=== PATIENT | male | born 1985 | race American Indian/Alaskan Native ===

== ENCOUNTER 2020-07-18 04:50 | Emergency (ER) | payer SELFPAY ==
[2020-07-18 08:07] VITALS: BP 177/116
--- NOTE | 2020-07-18 08:18 | Emergency Department Report ---
ED General Adult HPI - General Chief complaint: Sore Throat Stated complaint: DIFF BREATHING Time Seen by Provider: 07/18/20 08:09 Source: patient Mode of arrival: Ambulatory Limitations: No Limitations - History of Present Illness Initial comments: 35-year-old -Algerian male patient presents with complaints of sore throat x2 days. He rates his pain as a 3/10 in severity and states it worsens with swallowing. He denies any difficulty swallowing/opening his jaw, fever/chills or sweats, headache, cough, shortness of breath, or rash. Patient' s blood pressure noted to be significantly elevated. He denies any history of hypertension, dizziness, vision changes, numbness/tingling/weakness in his limbs, difficulty with speech/ambulation, confusion, or memory loss. Severity scale (0 -10): 0 - Related Data Previous Rx's Medication Instructions Recorded Last Taken Type Amoxicillin/Potassium Clav 1 each PO BID 10 Days #20 tablet 07/18/20 Unknown Rx [Augmentin 875-125 Tablet] predniSONE [Deltasone] 20 mg PO BID 4 Days #8 tab 07/18/20 Unknown Rx Allergies Allergy/AdvReac Type Severity Reaction Status Date / Time No Known Allergies Allergy Unverified 07/18/20 06:31 ED Review of Systems ROS: Stated complaint: DIFF BREATHING Other details as noted in HPI Constitutional: denies: chills, diaphoresis, fever, malaise, weakness Eyes: denies: eye pain, vision change ENT: throat pain. denies: ear pain, dental pain Respiratory: denies: cough, shortness of breath Cardiovascular: denies: chest pain Musculoskeletal: denies: joint swelling Skin: denies: change in color Neurological: denies: numbness, paresthesias ED Past Medical Hx - Past Medical History Previous Medical History?: No - Surgical History Past Surgical History?: No - Social History Smoking Status: Never Smoker - Medications Home Medications: Home Medications Medication Instructions Recorded Confirmed Last Taken Type Amoxicillin/Potassium Clav 1 each PO BID 10 Days #20 tablet 07/18/20 Unknown Rx [Augmentin 875-125 Tablet] predniSONE [Deltasone] 20 mg PO BID 4 Days #8 tab 07/18/20 Unknown Rx ED Physical Exam - General Limitations: No Limitations General appearance: alert, in no apparent distress, obese - Head Head exam: Present: atraumatic, normocephalic - Eye Eye exam: Present: normal appearance. Absent: scleral icterus - Expanded ENT Exam Expanded Mouth exam: Present: tongue normal. Absent: drooling, trismus, muffled voice Throat exam: Positive: other (Moderate swelling and erythema noted of the uvula; uvula is midline). Negative: normal inspection, tonsillar erythema, tonsillomegaly, tonsillar exudate, R peritonsillar mass, L peritonsillar mass - Neck Neck exam: Present: normal inspection, full ROM. Absent: lymphadenopathy - Respiratory Respiratory exam: Present: normal lung sounds bilaterally. Absent: respiratory distress - Cardiovascular Cardiovascular Exam: Present: regular rate, normal rhythm - Extremities Exam Extremities exam: Present: full ROM - Neurological Exam Neurological exam: Present: alert, oriented X3, normal gait - Psychiatric Psychiatric exam: Present: normal affect, normal mood - Skin Skin exam: Present: warm, dry, intact, normal color. Absent: rash, cyanosis, diaphoretic, erythema, petechiae, pallor, ecchymosis ED Course Vital Signs 07/18/20 07/18/20 06:36 08:06 Temperature 98.3 F Pulse Rate 98 H Respiratory 20 Rate Blood Pressure 174/124 177/116 [Right] O2 Sat by Pulse 99 Oximetry ED Medical Decision Making - Medical Decision Making 35-year-old -Algerian male patient presents with complaints of sore throat x2 days. He rates his pain as a 3/10 in severity and states it worsens with swallowing. He denies any difficulty swallowing/opening his jaw, fever/chills or sweats, headache, cough, shortness of breath, or rash. Patient's blood pressure noted to be significantly elevated. He denies any history of hypertension, dizziness, vision changes, numbness/tingling/weakness in his limbs, difficulty with speech/ambulation, confusion, or memory loss. Uvulitis noted on exam. Will treat with Augmentin and prednisone. Recommend patient follow-up with primary care within 48 hours for recheck of his blood pressure to confirm diagnosis of hypertension. He continues to deny any neurological symptoms. He is otherwise well-appearing and stable for discharge home. Strict return precautions were discussed in detail with patient who verbalizes understanding. Critical care attestation.: If time is entered above; I have spent that time in minutes in the direct care of this critically ill patient, excluding procedure time. ED Disposition Clinical Impression: Uvulitis, Elevated blood pressure reading in office without diagnosis of hypertension Disposition: DC-01 TO HOME OR SELFCARE Is pt being admited?: No Condition: Stable Instructions: Uvulitis, Hypertension, Adult Prescriptions: Amoxicillin/Potassium Clav [Augmentin 875-125 Tablet] 1 each PO BID 10 Days #20 tablet predniSONE [Deltasone] 20 mg PO BID 4 Days #8 tab Referrals: [facility] [Provider Group] - 07/20/20 Forms: Work/School Release Form(ED)
== END 2020-07-18 08:29 | disposition home or self-care (01) ==
LOC: ED 04:50
DX: K12.2 Cellulitis and abscess of mouth (principal); R03.0 Elevated blood-pressure reading, without diagnosis of hypertension; Z79.899 Other long term (current) drug therapy
CPT/HCPCS: 99282

== ENCOUNTER 2021-09-06 02:02 | Inpatient (IN) | payer SELFPAY ==
[2021-09-06] MEDS ORDERED: ASPIRIN 325 MG TAB PO ONE (02:11)
--- NOTE | 2021-09-06 02:35 | XRay Report ---
CHEST 1 VIEW INDICATION / CLINICAL INFORMATION: chest pain, jazmine STUDY TIME: 214 COMPARISON: None available. FINDINGS: SUPPORT DEVICES: Stable HEART / MEDIASTINUM: Stable LUNGS / PLEURA: Slightly congested appearance is noted. No pleural effusions are seen. No focal infil trates are noted. No pneumothorax. ADDITIONAL FINDINGS: No significant additional findings. Signer Name: Denis Morgan MD Signed: 09/06/2021 2:30 AM Workstation Name: [id number]
[2021-09-06] MEDS ORDERED: ONDANSETRON 4 MG/2 ML INJ IV ONE (02:41)
[2021-09-06] MEDS ORDERED: MORPHINE 4 MG/1 ML INJ IV ONE (02:41)
[2021-09-06 02:44] LABS: Basophils % (Auto) 0.5 % (0.0-1.8); Eosinophils # (Auto) 0.1 K/mm3 (0.0-0.4); Eosinophils % (Auto) 1.5 % (0.0-4.3); Hematocrit 39.3 % (35.5-45.6); Hemoglobin 12.5 gm/dl (11.8-15.2); Lymphocytes # (Auto) 1.5 K/mm3 (1.2-5.4); Lymphocytes % (Auto) 18.2 % (13.4-35.0); Mean Corpuscular HGB Conc 32 % (32-34); Mean Corpuscular Volume 84 fl (84-94); Platelet Count 327 K/mm3 (140-440); Red Blood Count 4.67 M/mm3 (3.65-5.03); Red Cell Distribution Width 14.9 % (13.2-15.2)
[2021-09-06 02:54] LABS: Alanine Aminotransferase 24 units/L (7-56); Albumin 4.2 g/dL (3.9-5); BUN/Creatinine Ratio 19; Blood Urea Nitrogen 25 mg/dL (9-20); Calcium 9.2 mg/dL (8.4-10.2); Hemolysis Index 7
[2021-09-06 03:12] LABS: C-Reactive Protein 0.9 mg/dL (0.00-1.30)
[2021-09-06] MEDS ORDERED: METOPROLOL TARTRATE 5 MG/5 ML INJ IV ONE (03:18)
[2021-09-06] MEDS ORDERED: OXYMETAZOLINE 0.05% NASAL SPRAY NS ONE (04:36)
[2021-09-06] MEDS ORDERED: SODIUM CHLORIDE 0.9% IV NR (05:00)
[2021-09-06] MEDS ORDERED: TRANEXAMIC ACID IV NR (05:00)
--- NOTE | 2021-09-06 05:16 | Emergency Department Report ---
ED Chest Pain HPI - General Chief Complaint: Chest Pain Stated Complaint: GUY Time Seen by Provider: 09/06/21 02:31 Source: patient Mode of arrival: Ambulatory Limitations: No Limitations - History of Present Illness Initial Comments: pt came in said hes been having hchest pain since 8pm last night and then started to have nosebleed. -: Gradual, hour(s) Onset: during rest Pain Location: left chest Pain Radiation: none Severity scale (0 -10): 3 Quality: heaviness Consistency: intermittent Improves With: nothing Treatments Prior to Arrival: none - Related Data Previous Rx's Medication Instructions Recorded Last Taken Type Amoxicillin/Potassium Clav 1 each PO BID 10 Days #20 tablet 07/18/20 Unknown Rx [Augmentin 875-125 Tablet] predniSONE [Deltasone] 20 mg PO BID 4 Days #8 tab 07/18/20 Unknown Rx Allergies Allergy/AdvReac Type Severity Reaction Status Date / Time No Known Allergies Allergy Verified 09/06/21 02:43 Heart Score - HEART Score History: Slightly suspicious EKG: Non-specific Age: < 45 Risk factors: 1-2 risk factors Troponin: < normal limit HEART Score: 2 - EKG Read Time Time EKG Completed: 01:09 EKG Read Time: 01:09 - Critical Actions Critical Actions: 0-3 pts:0.9-1.7%risk of adverse cardiac event.Candidate for d ischarge ED Review of Systems ROS: Stated complaint: GUY Other details as noted in HPI Constitutional: denies: chills, fever Eyes: denies: eye pain, eye discharge, vision change ENT: denies: ear pain, throat pain Respiratory: denies: cough, shortness of breath, wheezing Cardiovascular: denies: chest pain, palpitations Endocrine: no symptoms reported Gastrointestinal: denies: abdominal pain, nausea, diarrhea Genitourinary: denies: urgency, dysuria Musculoskeletal: denies: back pain, joint swelling, arthralgia Skin: denies: rash, lesions Neurological: denies: headache, weakness, paresthesias Psychiatric: denies: anxiety, depression Hematological/Lymphatic: denies: easy bleeding, easy bruising ED Past Medical Hx - Past Medical History Previous Medical History?: No - Surgical History Past Surgical History?: No - Social History Smoking Status: Never Smoker Substance Use Type: Alcohol - Medications Home Medications: Home Medications Medication Instructions Recorded Confirmed Last Taken Type Amoxicillin/Potassium Clav 1 each PO BID 10 Days #20 tablet 07/18/20 Unknown Rx [Augmentin 875-125 Tablet] predniSONE [Deltasone] 20 mg PO BID 4 Days #8 tab 07/18/20 Unknown Rx ED Physical Exam - General Limitations: No Limitations General appearance: alert, in no apparent distress - Head Head exam: Present: atraumatic, normocephalic - Eye Eye exam: Present: normal appearance - ENT ENT exam: Present: other (nasal epistaxis ) - Neck Neck exam: Present: normal inspection - Respiratory Respiratory exam: Present: normal lung sounds bilaterally. Absent: respiratory distress - Cardiovascular Cardiovascular Exam: Present: regular rate, normal rhythm. Absent: systolic murmur, diastolic murmur, rubs, gallop - GI/Abdominal GI/Abdominal exam: Present: soft, normal bowel sounds - Rectal Rectal exam: Present: deferred - Extremities Exam Extremities exam: Present: normal inspection - Back Exam Back exam: Present: normal inspection - Neurological Exam Neurological exam: Present: alert, oriented X3 - Psychiatric Psychiatric exam: Present: normal affect, normal mood - Skin Skin exam: Present: warm, dry, intact, normal color. Absent: rash ED Course Vital Signs 09/06/21 09/06/21 09/06/21 02:09 02:29 02:38 Temperature 98.4 F 97.8 F Pulse Rate 105 H 100 H 103 H Respiratory 14 18 14 Rate Blood Pressure Blood Pressure 207/130 170/105 [Left] O2 Sat by Pulse 94 100 100 Oximetry 09/06/21 09/06/21 09/06/21 02:45 03:01 03:15 Temperature Pulse Rate 97 H 94 H 107 H Respiratory 24 29 H 29 H Rate Blood Pressure 139/85 148/102 Blood Pressure [Left] O2 Sat by Pulse 96 95 97 Oximetry 09/06/21 09/06/21 09/06/21 03:31 03:44 03:45 Temperature Pulse Rate 86 98 H 95 H Respiratory 28 H 18 Rate Blood Pressure 170/105 138/96 138/96 Blood Pressure [Left] O2 Sat by Pulse 100 99 Oximetry 09/06/21 09/06/21 09/06/21 04:01 04:15 04:31 Temperature Pulse Rate 86 93 H 93 H Respiratory 19 32 H 24 Rate Blood Pressure 138/96 138/96 138/96 Blood Pressure [Left] O2 Sat by Pulse 100 99 99 Oximetry 09/06/21 09/06/21 04:45 05:00 Temperature Pulse Rate Respiratory Rate Blood Pressure 138/96 229/147 Blood Pressure [Left] O2 Sat by Pulse 100 100 Oximetry ED Medical Decision Making - Lab Data Result diagrams: 09/06/21 02:18 09/06/21 02:18 - EKG Data -: EKG Interpreted by Me EKG shows normal: sinus rhythm Rate: tachycardia - Radiology Data Radiology results: report reviewed, image reviewed - Medical Decision Making work up unrekarbal e, lopressot given multiple times, nasal bleed noted , afrin and rhinorocket applied started on nicardipine drip Critical care attestation.: If time is entered above; I have spent that time in minutes in the direct care of this critically ill patient, excluding procedure time. ED Disposition Clinical Impression: Epistaxis, Hypertensive emergency Disposition: ADMITTED INPATIENT Is pt being admited?: Yes Does the pt Need Aspirin: No Condition: Critical Instructions: Hypertension (ED) Referrals: PRIMARY CARE, [Primary Care Provider] - 3-5 Days
[2021-09-06] MEDS ORDERED: niCARdipine DRIP 40 MG/200 ML BAG ONE (05:24)
[2021-09-06 05:30] LABS: INR 0.91 (0.87-1.13)
[2021-09-06] MEDS ORDERED: ONDANSETRON 4 MG/2 ML INJ IV PRN (05:34)
[2021-09-06] MEDS ORDERED: MORPHINE 2 MG/1 ML INJ IV PRN (05:34)
[2021-09-06] MEDS ORDERED: MORPHINE 4 MG/1 ML INJ IV PRN ×2 (05:34)
[2021-09-06] MEDS ORDERED: ACETAMINOPHEN 325 MG TAB PO PRN ×2 (05:34)
[2021-09-06] MEDS ORDERED: traMADol 50 MG TAB PO PRN (05:34)
[2021-09-06] MEDS ORDERED: MAGNESIUM HYDROXIDE (MOM) ORAL LIQD UDC PO PRN (05:34)
[2021-09-06] MEDS ORDERED: NITROGLYCERIN 0.4 MG TAB SUBL SL PRN (05:34)
[2021-09-06] MEDS ORDERED: TRANEXAMIC ACID TP NR (05:35)
[2021-09-06] MEDS ORDERED: SODIUM CHLORIDE 0.9% TP NR (05:35)
--- NOTE | 2021-09-06 05:52 | History and Physical Report ---
History of Present Illness Date of examination: 09/06/21 Date of admission: 09/06/2021 Chief complaint: Chest Pain Nose Bleed History of present illness: 36-year-old -Ch[place] male with no significant past medical history presents to the emergency room today complaining of chest pain and nosebleed. Chest pain was central started 8 PM yesterday. Chest pain was substernal, no known relieving or exacerbating factor. Denies any nausea or vomiting and denie s any abdominal pain. Denies any fever or chills.. No cough or shortness of breath Who subsequently has been having profuse nosebleed thereafter. Denies any pain in the lungs. No headache or dizziness. Upon arrival in the emergency room, patient was having severe nosebleed. Was later packed with gauze. Blood pressure was quite elevated upon arrival in the ER. Work-up in the emergency room today, blood pressure was quite elevated. He was subsequently placed on a Cardene drip. Work-up in the emergency room today, labs were unremarkable. Chest x-ray shows slightly congested appearance otherwise no acute abnormality. Past History Past Medical History: No medical history Past Surgical History: No surgical history Social history: alcohol abuse Family history: hypertension (In mother) Medications and Allergies Allergies Allergy/AdvReac Type Severity Reaction Status Date / Time No Known Allergies Allergy Verified 09/06/21 02:43 Home Medications Medication Instructions Recorded Confirmed Last Taken Type Amoxicillin/Potassium Clav 1 each PO BID 10 Days #20 tablet 07/18/20 Unknown Rx [Augmentin 875-125 Tablet] predniSONE [Deltasone] 20 mg PO BID 4 Days #8 tab 07/18/20 Unknown Rx Active Meds: Active Medications Nicardipine HCl 50 mg/ Sodium (Chloride) 250 mls @ 25 mls/hr IV TITR NYASIA; Protocol Last Admin: 09/06/21 05:34 Dose: 5 mg/hr, 25 mls/hr Tranexamic Acid 200 mg/ Sodium (Chloride) 102 mls @ 0 mls/hr TP ONCE NR Stop: 09/06/21 10:00 Last Admin: 09/06/21 05:37 Dose: 1 mls/hr Review of Systems Constitutional: no fever, no chills Ears, nose, mouth and throat: epistaxis, no nasal congestion, no sore throat Cardiovascular: chest pain, no palpitations Respiratory: no cough, no shortness of breath Gastrointestinal: no abdominal pain, no nausea, no vomiting, no diarrhea Genitourinary Male: no dysuria, no hematuria, no flank pain, no nocturia Musculoskeletal: no neck pain, no low back pain Integumentary: no rash, no pruritis Neurological: no headaches, no confusion Psychiatric: no anxiety, no depression Endocrine: no polyphagia, no polydipsia, no polyuria, no nocturia Exam - Constitutional Vitals: Temp Pulse Resp BP Pulse Ox 97.8 F 88 24 212/146 100 09/06/21 02:29 09/06/21 05:31 09/06/21 04:31 09/06/21 05:31 09/06/21 05:31 General appearance: Present: no acute distress, well-nourished, obese - EENT Eyes: Present: PERRL, EOM intact. Absent: scleral icterus ENT: hearing intact, clear oral mucosa, dentition normal, other (Bleeding profu sely from nostrils) - Neck Neck: Present: supple, normal ROM - Respiratory Respiratory effort: normal Respiratory: bilateral: CTA - Cardiovascular Rhythm: regular Heart Sounds: Present: S1 & S2. Absent: gallop, systolic murmur, diastolic murmur, rub, click - Extremities Extremities: no ischemia, pulses intact, pulses symmetrical, No edema, normal temperature, normal color, Full ROM Peripheral Pulses: within normal limits - Abdominal General gastrointestinal: Present: soft, non-tender, non-distended, normal bowel sounds. Absent: mass - Integumentary Integumentary: Present: clear, warm, dry, normal turgor. Absent: rash - Musculoskeletal Musculoskeletal: strength equal bilaterally - Psychiatric Psychiatric: appropriate mood/affect, intact judgment & insight, memory intact, cooperative - Neurologic Neurologic: CNII-XII intact, no focal deficits, moves all extremities HEART Score - HEART Score EKG: Non-specific Age: < 45 Risk factors: 1-2 risk factors Troponin: Troponin T < 0.010 ng/mL (0.00-0.029) 09/06/21 05:06 Troponin: < normal limit - Critical Actions Critical Actions: 0-3 pts:0.9-1.7%risk of adverse cardiac event.Candidate for discharge Results - Labs CBC & Chem 7: 09/06/21 02:18 09/06/21 02:18 Labs: Abnormal lab results 09/06/21 09/06/21 Range/Units 02:18 02:18 MCH 27 L (28-32) pg Millard % (Auto) 12.0 H (0.0-7.3) % Millard # (Auto) 1.0 H (0.0-0.8) K/mm3 BUN 25 H (9-20) mg/dL Glucose 106 H (75-100) mg/dL Assessment and Plan Assessment: Hypertensive emergency Epistaxis Morbid obesity Plan: Patient admitted into the intensive care unit and has been started on Cardene drip. We will monitor blood pressure closely. Will monitor closely for further nosebleed. Will also check serial cardiac enzymes. Consult cardiology for recommendations. DVT prophylaxis:Sequential compression device CODE STATUS: Full code
[2021-09-06] MEDS ORDERED: niCARdipine 50 MG in SODIUM CHLORIDE 0.9% 250ML 230 ML IV SCH (06:00)
[2021-09-06] MEDS ORDERED: HEPARIN 5,000 UNIT/1 ML VIAL SUB-Q SCH (06:00)
[2021-09-06 07:08] LABS: Bilirubin,Urine NEG (Negative); Blood,Urine NEG (Negative); Color,Urine Yellow (Yellow); Protein,Urine <15 mg/dL mg/dL (Negative); RBC,Urine < 1.0 /HPF (0.0-6.0); Urobilinogen,Urine < 2.0 mg/dL (<2.0)
--- NOTE | 2021-09-06 07:11 | Cat Scan Report ---
CT HEAD WITHOUT CONTRAST INDICATION: Hypertensive emergency TECHNIQUE: All CT scans at this location are performed using CT dose reduction for ALARA by means of automated exposure control. COMPARISON: None available. FINDINGS: BRAIN: No hemorrhage or mass effect are seen. No evidence of acute infarction is noted. ORBITS: Normal as visualized. SOFT TISSUES OF HEAD: Normal. CALVARIUM: Normal. VISUALIZED PARANASAL SINUSES AND MASTOID AIR CELLS: Both maxillary sinuses show air-fluid levels as c an be seen with acute sinusitis. Mild mucosal thickening is noted in the left ethmoid sinuses. Mild l eft sphenoid mucosal thickening is noted. No other air-fluid levels are seen. ADDITIONAL FINDINGS: None. IMPRESSION: 1. No acute intracranial abnormality. 2. Bilateral maxillary sinus air-fluid levels as can be seen with acute sinusitis. Signer Name: Denis Morgan MD Signed: 09/06/2021 7:06 AM Workstation Name: [id number]
[2021-09-06] MEDS ORDERED: OXYMETAZOLINE 0.05% NASAL SPRAY NS PRN ×2 (08:43→09:11)
--- NOTE | 2021-09-06 08:57 | Event Note ---
Date: 09/06/21 Second [facility] visit today. Prolonged visit of 33 minutes Patient is 36-year-old -[place] male with no significant past medical history presents to the emergency room today complaining of chest pain and nosebleed. Chest pain was central started 8 PM the day prior to admission. Chest pain was substernal, no known relieving or exacerbating factor. Denies any nausea or vomiting and denies any abdominal pain. Denies any fever or chills.. No cough or shortness of breath Who subsequently has been having profuse nosebleed thereafter. Denies any pain in the lungs. No headache or dizziness. Upon arrival in the emergency room, patient was having severe nosebleed. Was later packed with gauze. Blood pressure was quite elevated upon arrival in the ER. Work-up in the emergency room today, blood pressure was quite elevated. He was subsequently placed on a Cardene drip. Work-up in the emergency room today, labs were unremarkable. Chest x-ray shows slightly congested appearance otherwise no acute abnormality. Interval development 09/06: At the time of my evaluation the patient had removed the packing in the nose. Blood pressure is better improved he says that he has been told in the past that he has high blood pressure but has never been put on medication. He reports that he recently flew in from [place]. He denies any further chest pain at this time. He also reports that he has had a nosebleed before but he stopped by itself. Shortly after he did report that he was feeling a sensation of blee ding in his nose again and ended up spitting out him moderate amount of blood of about 10 to 20 mL. We will at this time continue Afrin on a scheduled dose minding patient's blood pressure. Patient will benefit from an outpatient ear nose and throat physician evaluation. Being that this is a prior condition we will monitor him at least for 24 hours and if the bleeding has subsided he can be discharged but if bleeding persist he may need to be transferred for further evaluation Interval exam General appearance: Present: no acute distress, well-nourished, obese - EENT Eyes: Present: PERRL, EOM intact. Absent: scleral icterus, obese ENT: hearing intact, clear oral mucosa, dentition normal, no nodules noted on my examination of his nostril - Neck Neck: Present: supple, normal ROM - Respiratory Respiratory effort: normal Respiratory: bilateral: CTA - Cardiovascular Rhythm: regular Heart Sounds: Present: S1 & S2. Absent: gallop, systolic murmur, diastolic murmur, rub, click - Extremities Extremities: no ischemia, pulses intact, pulses symmetrical, No edema, normal temperature, normal color, Full ROM Peripheral Pulses: within normal limits - Abdominal General gastrointestinal: Present: soft, non-tender, non-distended, normal bowel sounds. Absent: mass - Integumentary Integumentary: Present: clear, warm, dry, normal turgor. Absent: rash - Musculoskeletal Musculoskeletal: strength equal bilaterally Assessment Hypertensive emergency Epistaxis-persist Morbid obesity Plan: Patient can be transferred to the medical floor with remote telemetry. Await cardiology evaluation. Afrin and monitor blood pressure even with this medication due to rebound hypertension. Outpatient ENT Extensive counseling on weight loss and also blood pressure control management diet for about 15 to 20 minutes counseling provided. I have discontinued the aspirin due to the profuse bleeding. I also discontinued the heparin for DVT prophylaxis encourage patient to ambulate he reports no dizziness. DVT prophylaxis with SCD CODE STATUS: Full code Discussed with nursing staff
[2021-09-06] MEDS ORDERED: OXYMETAZOLINE 0.05% NASAL SPRAY NS SCH (09:00)
[2021-09-06] MEDS: FAMOTIDINE 20 MG TAB PO SCH (10:59)
[2021-09-06 11:29] LABS: Basophils % (Auto) 0.5 % (0.0-1.8); Eosinophils % (Auto) 0.3 % (0.0-4.3); Hematocrit 34.5 % (35.5-45.6); Hemoglobin 11.2 gm/dl (11.8-15.2); Lymphocytes # (Auto) 1.2 K/mm3 (1.2-5.4); Lymphocytes % (Auto) 12.9 % (13.4-35.0); Mean Corpuscular HGB Conc 33 % (32-34); Mean Corpuscular Volume 84 fl (84-94); Monocytes # (Auto) 0.9 K/mm3 (0.0-0.8); Monocytes % (Auto) 9.7 % (0.0-7.3); Platelet Count 319 K/mm3 (140-440); Red Cell Distribution Width 15.2 % (13.2-15.2)
[2021-09-06 11:33] LABS: BUN/Creatinine Ratio 25; Blood Urea Nitrogen 30 mg/dL (9-20); Calcium 8.5 mg/dL (8.4-10.2); Hemolysis Index 4
--- NOTE | 2021-09-06 17:49 | Progress Note ---
Subjective Date of service: 09/06/21 Interval history: CONSULT DICTATED WILL STRESS TEST WHEN EPISTAXIS RESOLVES Objective Vital Signs Temp Pulse Resp BP BP Pulse Ox 09/06/21 16:10 100 09/06/21 15:49 98.8 F 103 H 18 177/118 100 09/06/21 13:29 148/98 09/06/21 12:00 98 F 85 20 148/87 96 09/06/21 10:51 93 H 30 H 140/75 100 09/06/21 10:41 94 H 13 140/75 100 09/06/21 10:31 95 H 29 H 140/75 100 09/06/21 10:21 90 13 140/75 98 09/06/21 10:11 88 30 H 140/75 97 09/06/21 10:00 84 140/75 98 09/06/21 09:51 87 148/66 98 09/06/21 09:41 98 H 148/66 98 09/06/21 09:31 83 148/66 99 09/06/21 09:21 77 148/66 100 09/06/21 09:11 28 H 148/66 99 09/06/21 09:00 91 H 16 148/66 94 09/06/21 08:51 86 26 H 97 09/06/21 08:41 88 28 H 100 09/06/21 08:31 96 H 8 L 100 09/06/21 08:23 97 H 13 86 09/06/21 08:15 99 09/06/21 06:54 78 22 142/83 99 09/06/21 06:41 120/63 09/06/21 06:40 86 15 74/38 09/06/21 06:31 76 21 74/38 09/06/21 06:20 77 25 H 113/31 100 09/06/21 06:11 91 H 26 H 142/83 100 09/06/21 06:09 97.8 F 773 H 18 113/65 100 09/06/21 06:01 95 H 170/104 99 09/06/21 05:51 88 18 169/100 99 09/06/21 05:50 89 18 169/100 178/115 100 09/06/21 05:31 88 212/146 100 09/06/21 05:15 222/138 97 09/06/21 05:00 229/147 100 09/06/21 04:45 138/96 100 09/06/21 04:31 93 H 24 138/96 99 09/06/21 04:15 93 H 32 H 138/96 99 09/06/21 04:01 86 19 138/96 100 09/06/21 03:45 95 H 18 138/96 99 09/06/21 03:44 98 H 138/96 09/06/21 03:31 86 28 H 170/105 100 09/06/21 03:15 107 H 29 H 148/102 97 09/06/21 03:01 94 H 29 H 139/85 95 09/06/21 02:45 97 H 24 96 09/06/21 02:38 103 H 14 100 09/06/21 02:29 97.8 F 100 H 18 170/105 100 09/06/21 02:09 98.4 F 105 H 14 207/130 94 - Labs and Meds Cardiac Enzymes 09/06/21 Range/Units 02:18 AST 24 (5-40) units/L Coagulation 09/06/21 Range/Units 05:06 PT 13.2 (12.2-14.9) Sec. INR 0.91 (0.87-1.13) CBC 09/06/21 09/06/21 Range/Units 02:18 10:40 WBC 8.5 8.9 (4.5-11.0) K/mm3 RBC 4.67 4.10 (3.65-5.03) M/mm3 Hgb 12.5 11.2 L (11.8-15.2) gm/dl Hct 39.3 34.5 L (35.5-45.6) % Plt Count 327 319 (140-440) K/mm3 Lymph # (Auto) 1.5 1.2 (1.2-5.4) K/mm3 Cottle # (Auto) 1.0 H 0.9 H (0.0-0.8) K/mm3 Eos # (Auto) 0.1 0.0 (0.0-0.4) K/mm3 Baso # (Auto) 0.0 0.0 (0.0-0.1) K/mm3 Comprehensive Metabolic Panel 09/06/21 09/06/21 Range/Units 02:18 10:40 Sodium 138 140 (137-145) mmol/L Potassium 4.1 4.1 (3.6-5.0) mmol/L Chloride 101.9 106.1 (98-107) mmol/L Carbon Dioxide 29 27 (22-30) mmol/L BUN 25 H 30 H (9-20) mg/dL Creatinine 1.3 1.2 (0.8-1.3) mg/dL Glucose 106 H 102 H (75-100) mg/dL Calcium 9.2 8.5 (8.4-10.2) mg/dL AST 24 (5-40) units/L ALT 24 (7-56) units/L Alkaline Phosphatase 68 (35-129) units/L Total Protein 7.4 (6.3-8.2) g/dL Albumin 4.2 (3.9-5) g/dL
[2021-09-06] MEDS: guaiFENesin 100 MG/5 ML ORAL LIQD PO PRN (20:44)
[2021-09-06] MEDS: amLODIPine 5 MG TAB PO SCH (20:44)
[2021-09-06] MEDS: hydroCHLOROthiazide 12.5 MG CAP PO SCH (20:44)
[2021-09-07] MEDS ORDERED: cloNIDine 0.1 MG TAB PO ONE (00:25)
[2021-09-07 02:13] LABS: Hematocrit 30.8 % (35.5-45.6); Hemoglobin 10.1 gm/dl (11.8-15.2)
--- NOTE | 2021-09-07 05:44 | Consultation ---
DATE OF CONSULTATION: 09/06/2021 HISTORY OF PRESENT ILLNESS: The patient is a 36-year-old male with a history of significant alcohol use, who was admitted with epistaxis and chest discomfort. He has had one epistaxis episode before. He describes chronic sinus problems with coughing and congestion lately and associated substernal chest pressure. There was no tenderness or GI symptoms. He does not feel chest pain when he is active. Normally, there is no shortness of breath, palpitations, dizziness, claudication or edema. He was told of high blood pressure in the past, but he does not check his blood pressure or take medications. He states that secondhand smoke irritates his sinuses and breathing. He has insomnia and snoring. There is no fever or chills. He describes moderate alcohol use on a regular basis. No history of liver disease or DTs. PAST MEDICAL HISTORY: FAMILY HISTORY: Hypertension. SMOKING: None. ALCOHOL: Significant use. OPERATIONS: None. ALLERGIES: None. MEDICATIONS: See the nurse's list. REVIEW OF SYSTEMS: No other complaints or medical problems. No exertional symptoms. No neurologic symptoms. No psychiatric problems. No GI or disorders. PHYSICAL EXAMINATION: GENERAL: Well developed, markedly overweight, in no acute distress. Alert, oriented, cooperative. Mental status normal. EYES, NOSE AND THROAT: Unremarkable. NECK: Reveals no JVD or bruits. Neck is supple, no masses. LUNGS: Clear. No labored respirations. CARDIAC: Regular rhythm, S4 gallop. No murmurs or rubs. ABDOMEN: Soft, nontender, no masses. EXTREMITIES: No cyanosis, clubbing or edema. Peripheral pulses are intact. NEUROLOGICAL: Symmetrical. SKIN: Multiple tattoos. IMPRESSION: 1. Hypertensive urgency: Improved. 2. Chest pressure, possibly secondary to cough and pulmonary congestion. Rule out angina. 3. Extensive epistaxis. 4. Moderate alcohol use. 5. Morbid obesity. 6. Obvious sleep apnea. 7. Chronic sinusitis. PLAN: Aggressive blood pressure management, stress test when the epistaxis resolves. Discussed risk factor modification. Discouraged heavy alcohol use. Outpatient sleep study, echocardiogram will be reviewed shortly. Thank you for this consultation. TID: [id number] RECEIPT: [id number] ROMAN/CASE/FER
[2021-09-07 05:52] LABS: Hematocrit 31.7 % (35.5-45.6); Hemoglobin 10.2 gm/dl (11.8-15.2); Mean Corpuscular HGB Conc 32 % (32-34); Mean Corpuscular Volume 84 fl (84-94); Platelet Count 306 K/mm3 (140-440); Red Blood Count 3.78 M/mm3 (3.65-5.03); Red Cell Distribution Width 15.1 % (13.2-15.2)
[2021-09-07 06:13] LABS: BUN/Creatinine Ratio 22; Blood Urea Nitrogen 29 mg/dL (9-20); Calcium 8.8 mg/dL (8.4-10.2); Hemolysis Index 2
[2021-09-07] MEDS: guaiFENesin 100 MG/5 ML ORAL LIQD PO PRN (07:45)
[2021-09-07] MEDS ORDERED: ASPIRIN EC 325 MG TAB PO SCH (10:00)
[2021-09-07] MEDS: FAMOTIDINE 20 MG TAB PO SCH (10:27)
[2021-09-07] MEDS: hydroCHLOROthiazide 12.5 MG CAP PO SCH (10:27)
[2021-09-07] MEDS: amLODIPine 5 MG TAB PO SCH (10:27)
--- NOTE | 2021-09-07 10:38 | Discharge Summary ---
Providers - Providers Date of Admission: 09/06/21 05:35 Date of discharge: 09/07/21 Attending physician: MARIE WILSON 09/06/21 Consult to Cardiac Rehabilitation [CONS] Routine Reason For Exam: Phase I 09/06/21 05:35 Consult to Cardiology [CONS] Routine Consulting Provider: ROSANNA WHITE Reason For Exam: chest pain, hypertensive emergency Consult to Dietitian/Nutrition [CONS] Routine Physician Instructions: Reason For Exam: Reason for Consult: Diet education Primary care physician: GARMENT TAG STRINGER Hospitalization Reason for admission: Epistaxis, chest pain Condition: Critical Hospital course: Patient is 36-year-old -[place] male with no significant past medical history presents to the emergency room today complaining of chest pain and nosebleed. Chest pain was central started 8 PM the day prior to admission. Chest pain was substernal, no known relieving or exacerbating factor. Denied any nausea or vomiting and denied any abdominal pain. No cough or shortness of breath. Upon arrival in the emergency room, patient was having severe nosebleed that was later packed with gauze. Blood pressure was quite elevated upon arrival in the ER.the patient was admitted with diagnosis of epistaxis, accelerated hypertension and chest pain. He was subsequently placed on a Cardene drip. Shortly after hospitalization, the patient had removed the packing in the nose. Blood pressure was better. He has been told in the past that he has high blood pressure but has never been put on medication. He reported that he recently flew in from [place]. He denied any further chest pain for the rest of the hospitalization. He attributed his chest pain to coughing associated with the epistaxis. Chest pain etiology is likely secondary to costochondritis. He also reports that he has had a nosebleed before but he stopped by itself. Shortly after he did report that he was feeling a sensation of bleeding in his nose again and ended up spitting out him moderate amount of blood of about 10 to 20 mL. The patient was treated with Afrin on a scheduled dose. Patient will benefit from an outpatient ear nose and throat physician evaluation. The patient was monitored for 24 hours and the bleeding has subsided. Therefore, patient is felt to have received maximal hospital benefit and will be discharged home. Cardiology was consulted with regards to the chest pain who initially reported stress test evaluation. However, I discussed the case with Ingrid Pennington who states that the patient can follow-up as an outpatient for stress test. Medications will be adjusted for the hypertension and the blood pressure is under control patient will discharge and follow-up as an outpatient. Dedicated discharge time 35 minutes. Disposition: 01 HOME / SELF CARE / HOMELESS Final Discharge Diagnosis (Prints w/discharge instructions): Epistaxis, ac celerated hypertension, costochondritis Core Measure Documentation - Palliative Care Palliative Care/ Comfort Measures: Not Applicable - Core Measures Any of the following diagnoses?: none Exam - Constitutional Vitals: Temp Pulse Resp BP Pulse Ox 97.7 F 96 H 16 163/118 97 09/07/21 05:42 09/07/21 06:26 09/07/21 05:42 09/07/21 06:26 09/07/21 07:40 General appearance: Present: no acute distress, well-nourished - EENT Eyes: Present: PERRL ENT: hearing intact, clear oral mucosa - Neck Neck: Present: supple, normal ROM - Respiratory Respiratory effort: normal Respiratory: bilateral: CTA - Cardiovascular Heart Sounds: Present: S1 & S2. Absent: rub, click - Extremities Extremities: pulses symmetrical, No edema Peripheral Pulses: within normal limits - Abdominal General gastrointestinal: Present: soft, non-tender, non-distended, normal bowel sounds Male genitourinary: Present: normal - Integumentary Integumentary: Present: clear, warm, dry - Musculoskeletal Musculoskeletal: gait normal, strength equal bilaterally - Psychiatric Psychiatric: appropriate mood/affect, intact judgment & insight - Neurologic Neurologic: CNII-XII intact, moves all extremities Plan Activity: advance as tolerated Weight Bearing Status: Weight Bear as Tolerated Diet: low fat, low cholesterol, low salt Additional Instructions: Outpatient stress test scheduled with Dr. Ingrid Pennington for Friday. Follow up with: MARIA LUZ PRIETO MD [Referring] - 7 Days GABBY MELARA MD [Primary Care Provider] - 3-5 Days INGRID PENNINGTON MD [Staff Physician] - 7 Days Prescriptions: hydroCHLOROthiazide [HCTZ] 12.5 mg PO QDAY #30 capsule Nitroglycerin [Nitrostat] 0.4 mg SL Q5M PRN #30 tablet PRN Reason: Chest Pain NIFEdipine XL [Procardia Xl] 60 mg PO Q12HR #60 tablet
[2021-09-07 11:19] VITALS: BP 147/98
[2021-09-07] MEDS ORDERED: NIFEdipine XL 60 MG TAB PO SCH (22:00)
== END 2021-09-07 12:43 | disposition home or self-care (01) | DRG 206 ==
LOC: ED 02:02 → CC1 05:35 → 3A 14:50
PROVIDERS: ADMIT Internal Medicine Geriatric Medicine; ATTEND Hospitalist
DX: M94.0 Chondrocostal junction syndrome [Tietze] (principal); I16.1 Hypertensive emergency; Z68.41 Body mass index [BMI] 40.0-44.9, adult; R04.0 Epistaxis; Z82.49 Family history of ischemic heart disease and other diseases of the circulatory system; E66.01 Morbid (severe) obesity due to excess calories
CPT/HCPCS: 36415; 70450; 71045; 80048; 80053; 81001; 83690; 83880; 84484; 85014; 85018; 85025; 85027; 85610; 86140; 93005; 93306; G0378; J3490; C8929; J7050